=== PATIENT | male | born 1980 | race Two or more races ===

== ENCOUNTER 2016-11-28 10:24 | Emergency (ER) | payer SELFPAY ==
[2016-11-28 10:57] LABS: ABSOLUTE NEUTROPHIL COUNT 4.5 K/mm3 (1.8-7.7); BASO % 0.6 % (0.2-1.0); EOS # 0.1 (0.0-0.5); EOS % 0.9 % (0.9-2.9); HEMATOCRIT 41.4 % (32.0-52.0); HEMOGLOBIN 13.9 gm/l (14.0-18.0); IMM NEUT% 0.3 % (0-1); LYMPH # 1.2 (1.0-4.8); LYMPH % 18.4 % (15-45); MEAN CELL VOLUME 89.8 fl (80.0-94.0); MEAN CORPUSCULAR HEMOGLOBIN 30.2 pg (27.0-31.0); MEAN CORPUSCULAR HGB CONC 33.6 g/dl (33.0-37.0); MONO # 0.8 (0.0-0.8); MONO % 11.5 % (4-12); NEUT % 68.3 % (43-75); PLATELET COUNT 145 K/mm3 (130-400); RED CELL DISTRIBUTION WIDTH 12.2 % (11.5-14.5)
[2016-11-28 11:27] LABS: ALB/GLOB RATIO 1.3 (>1.0)
[2016-11-28 12:13] LABS: SPECIFIC GRAVITY 1.015 (1.001-1.030); URINE BILIRUBIN NEGATIVE (NEGATIVE); URINE BLOOD TRACE (NEGATIVE); URINE GLUCOSE (UA) NEGATIVE (NEGATIVE); URINE LEUKOCYTE ESTERASE NEGATIVE (NEGATIVE); URINE NITRITE NEGATIVE (NEGATIVE); URINE PROTEIN NEGATIVE (NEGATIVE); URINE UROBILINOGEN NORMAL (0-1 mg/dl)
[2016-11-28 12:15] LABS: URINE APPEARANCE CLEAR; URINE COLOR YELLOW
[2016-11-28 12:24] LABS: URINE AMORPHOUS SEDIMENT FEW; URINE BACTERIA 0; URINE EPITHELIAL CELLS 0-1 /hpf; URINE RBC 0-1 /hpf; URINE WBC NEG /hpf
[2016-11-28 15:38] LABS: C DIFF TOXIN A/B NEGATIVE (NEGATIVE)
== END 2016-11-28 13:41 | disposition home or self-care (01) ==
LOC: ED 10:24
DX: R19.7 Diarrhea, unspecified (principal)

== ENCOUNTER 2016-11-29 04:54 | Emergency (ER) | payer SELFPAY ==
[2016-11-29] MEDS ORDERED: DEXAMETHASONE SOD PHOS 10 MG/1 ML VIAL ONE (05:53)
[2016-11-29] MEDS ORDERED: IBUPROFEN 800 MG TABLET ONE (05:53)
[2016-11-29] MEDS ORDERED: ONDANSETRON 4 MG ODT TAB ONE (05:53)
== END 2016-11-29 06:26 | disposition home or self-care (01) ==
LOC: ED 04:54
DX: R19.8 Other specified symptoms and signs involving the digestive system and abdomen (principal); K92.1 Melena; F17.210 Nicotine dependence, cigarettes, uncomplicated